=== PATIENT | male | born 1960 | race Two or more races ===

== ENCOUNTER 2022-09-21 16:21 | Emergency (ER) | payer BC, MEDICAID ==
[~2022-09-21] VITALS: Ht 165.1 cm; Wt 74.8 kg
--- NOTE | 2022-09-21 16:30 | NUR ---
MD at bedside for evaluation
[2022-09-21] MEDS ORDERED: IV NORMAL SALINE 1000 ML BAG IV ONE (16:45)
[2022-09-21] MEDS ORDERED: PROCHLORPERAZINE EDISYLATE 10 MG/2 ML VIAL IV ONE (16:45)
[2022-09-21] MEDS ORDERED: diphenhydrAMINE 50 MG/1 ML VIAL IV ONE (16:45)
[2022-09-21] MEDS ORDERED: diphenhydrAMINE 50 MG/1 ML VIAL ONE (16:52)
[2022-09-21] MEDS ORDERED: PROCHLORPERAZINE EDISYLATE 10 MG/2 ML VIAL ONE (16:52)
[2022-09-21 16:55] LABS: HEMATOCRIT 45.7 % (36.7-47.1); MEAN CORPUSCULAR HEMOGLOBIN 31.7 uug (23.8-33.4); MEAN CORPUSCULAR VOLUME 95.1 fL (73.0-96.2); PLATELET COUNT (AUTO) 157 K/uL (152-348)
[2022-09-21 17:07] LABS: CARBON DIOXIDE 27 mmol/L (21-32); CHLORIDE 101 mmol/L (98-107); CREATININE 0.6 mg/dL (0.6-1.3); GLUCOSE 100 mg/dL (74-106); POTASSIUM 3.7 mmol/L (3.5-5.1); UREA NITROGEN, BLOOD 17 mg/dL (7-18)
--- NOTE | 2022-09-21 17:09 | NUR ---
Patient ambulate to restroom with brisk, steady gait.
--- NOTE | 2022-09-21 18:55 | NUR ---
Received report from [facility].
--- NOTE | 2022-09-21 19:58 | NUR ---
Patient a/o x 4. NAD noted. Ambulatory with a steady gait. All belongings with patient. Patient discharged to home in stable condition. Written and verbal after care instructions given. Patient verbalizes understanding of instructions. Stressed follow up or return to ER for worsening s/s.
== END 2022-09-21 20:00 | disposition home or self-care (01) ==
LOC: ER 16:21 → EDSEX 16:21 → ER 20:00
DX: R51.9 Headache, unspecified (principal); R07.89 Other chest pain; R11.0 Nausea; I10 Essential (primary) hypertension
CPT/HCPCS: 99285; 96374; 70450; 96361; 96375; 80048; 85025; 84484 ×2; 36415; 93005; J1200; J0780; J7040; A4663

== ENCOUNTER 2023-02-03 09:45 | Emergency (ER) | payer BC ==
[~2023-02-03] VITALS: Ht 165.1 cm; Wt 72.6 kg
[2023-02-03] MEDS ORDERED: GABA-532 PO (09:57)
[2023-02-03] MEDS ORDERED: KETOROLAC TROMETHAMINE 15 MG INJ IM ONE (10:00)
[2023-02-03] MEDS ORDERED: KETOROLAC TROMETHAMINE 15 MG INJ ONE (10:02)
[2023-02-03] MEDS ORDERED: LIDO30AD10 TP (10:08)
[2023-02-03] MEDS ORDERED: IBUP-1955 PO (10:08)
[2023-02-03] MEDS ORDERED: CYCL5TAB PO (10:08)
[2023-02-03 10:51] VITALS: BP 139/90; TEMP 97.9; O2SAT 99
== END 2023-02-03 10:55 | disposition home or self-care (01) ==
LOC: ER 09:47
DX: S83.92XA Sprain of unspecified site of left knee, initial encounter (principal); S20.212A Contusion of left front wall of thorax, initial encounter; Z79.1 Long term (current) use of non-steroidal anti-inflammatories (NSAID); Z79.899 Other long term (current) drug therapy; W18.39XA Other fall on same level, initial encounter; Y93.89 Activity, other specified; Y92.89 Other specified places as the place of occurrence of the external cause; Y99.8 Other external cause status
CPT/HCPCS: 99284; 71101; 73564; 96372; J1885; A4663

== ENCOUNTER 2023-11-02 10:26 | Emergency (ER) | payer BC ==
[~2023-11-02] VITALS: Ht 165.1 cm; Wt 72.6 kg
[~2023-11-02 10:26] MED LIST: CYCL5TAB PO; GABA-532 PO; IBUP-1955 PO; LIDO30AD10 TP
[2023-11-02] MEDS ORDERED: CIPR2.5D11 (10:34)
[2023-11-02] MEDS ORDERED: LEVO500T90 PO (10:34)
[2023-11-02] MEDS ORDERED: PRED5DRO16 EACHEYE (10:34)
[2023-11-02 11:49] LABS: BASOPHILS % (AUTO) 0.1 % (0.0-2.0); EOSINOPHILS # (AUTO) 0.1 K/uL (0.0-0.7); EOSINOPHILS % (AUTO) 0.7 % (0.0-7.0); HEMATOCRIT 42.4 % (36.7-47.1); HEMOGLOBIN 14.8 g/dL (12.5-16.3); LYMPHOCYTES # (AUTO) 0.2 K/uL (0.8-4.8); LYMPHOCYTES % (AUTO) 1.8 % (20.5-51.5); MEAN CORPUSCULAR HEMOGLOBIN 32.1 uug (23.8-33.4); MEAN CORPUSCULAR HGB CONC 35 g/dL (32.5-36.3); MEAN CORPUSCULAR VOLUME 92.2 fL (73.0-96.2); MONOCYTES # (AUTO) 0.4 K/uL (0.1-1.30); MONOCYTES % (AUTO) 3.3 % (0.0-11.0); NEUTROPHILS # (AUTO) 10.8 K/uL (1.8-8.9); NEUTROPHILS % (AUTO) 94.1 % (38.5-71.5); PLATELET COUNT (AUTO) 68 K/uL (152-348); RED CELL DISTRIBUTION WIDTH 13.7 % (12.1-16.2); WHITE BLOOD COUNT (AUTO) 11.5 K/uL (3.6-10.2)
[2023-11-02 11:59] LABS: DIFFERENTIAL COMMENT 1
[2023-11-02 12:03] LABS: CALCIUM 8.6 mg/dL (8.5-10.1); CARBON DIOXIDE 26 mmol/L (21-32); CHLORIDE 93 mmol/L (98-107); CREATININE 0.9 mg/dL (0.6-1.3); GLUCOSE 123 mg/dL (74-106); POTASSIUM 3.5 mmol/L (3.5-5.1); SODIUM SERUM 129 mmol/L (136-145); UREA NITROGEN, BLOOD 7 mg/dL (7-18)
[2023-11-02 12:10] LABS: ALANINE AMINOTRANSFERASE 35 U/L (16-63); ALBUMIN 3.5 g/dL (3.4-5.0); ALKALINE PHOSPHATASE 104 U/L (50-136); ASPARTATE AMINOTRANSFERASE 26 U/L (15-37); BILIRUBIN,DIRECT 0.2 mg/dL (0.0-0.2); LIPASE 27 U/L (16-77); TOTAL PROTEIN, SERUM 7.4 g/dL (6.4-8.2)
[2023-11-02 13:57] LABS: *BILIRUBIN,URIN NEGATIVE (NEGATIVE); *BLOOD, URINE 2+ (NEGATIVE); *CLARITY,URINE CLEAR (CLEAR); *COLOR,URINE YELLOW (YELLOW); *KETONES,URINE 2+ (NEGATIVE); *PROTEIN,URINE 1+ (NEGATIVE); *UROBILINOGEN,URINE 0.2 E.U./dl (NORMAL); LEUKOCYTE ESTERASE ,URINE TRACE (NEGATIVE); NITRITE, URINE POSITIVE (NEGATIVE); PH,URINE 6.5 (5.0-8.0); UGLUCOSE NEGATIVE (NEGATIVE)
[2023-11-02 14:11] LABS: BAND % (MANUAL) 5 % (0-10); EOSINOPHILS % (MANUAL) 1 % (0-8); MONOCYTES % (MANUAL) 2 % (2-10); NEUTROPHILS % (MANUAL) 92 % (42-75); PLATELET ESTIMATE DECREASED
[2023-11-02 14:12] LABS: ANISOCYTOSIS 1+; TEAR DROP CELLS 1+
[2023-11-02 14:15] LABS: RBC,URINE 20-50 /HPF (0-3)
[2023-11-02 14:16] LABS: BACTERIA,URINE FEW /HPF (NONE SEEN); SQUAMOUS EPITHELIAL CELL,UR FEW /HPF (NONE SEEN)
[2023-11-02 14:45] VITALS: BP 110/66; O2SAT 98
== END 2023-11-02 14:49 | disposition home or self-care (01) ==
LOC: ER 10:26
DX: R33.9 Retention of urine, unspecified (principal); Z79.899 Other long term (current) drug therapy
CPT/HCPCS: 36415; 51702; 70030-TC; 71045; 83690; 84484; 85025; 85730; 93005; A4606; A4663